=== PATIENT | female | born 1995 ===

== ENCOUNTER → 2018-05-29 | Outpatient (CLI) | payer SELFPAY ==
[~2018-05-29] MED LIST: INSU100V24 SQ; LANI SUBQ
[2018-05-29 09:23] LABS: PLATELET COUNT, AUTOMATED 276 K/uL (150-450)
[2018-05-29 10:12] LABS: LDL CHOLESTEROL 89 mg/dl
== END ==
LOC: LAB 08:46
PROVIDERS: ATTEND Internal Medicine
DX: E11.9 Type 2 diabetes mellitus without complications (principal)
CPT/HCPCS: 36415; 81001; 82040; 82043; 82247; 82310; 82374; 82435; 82465; 82565; 82947; 83036; 83718; 84075; 84132; 84155; 84295; 84443; 84450; 84460; 84478; 84520; 85025